=== PATIENT | female | born 1995 | race Caucasian/White ===

== ENCOUNTER 2018-03-08 16:51 | Outpatient (CLI) | payer OTHER ==
[2018-03-08] MEDS: TERBUTALINE 1 MG/ML INJ SC (18:57)
[2018-03-08] MEDS: LACTATED RINGER'S 1,000 ML IV (19:18)
[2018-03-08 19:45] LABS: ADD UMIC NO; UR ASCORBIC ACID NEGATIVE (NEGATIVE); UR BILIRUBIN (Dip) NEGATIVE (NEGATIVE); UR BLOOD (Dip) NEGATIVE (NEGATIVE); UR CLARITY CLEAR (CLEAR); UR COLOR YELLOW (YELLOW); UR GLUCOSE (Dip) NEGATIVE (NEGATIVE); UR KETONES (Dip) NEGATIVE (NEGATIVE); UR LEUKOCYTE ESTERASE (Dip) NEGATIVE Leu/ul (NEGATIVE); UR NITRITE (Dip) NEGATIVE (NEGATIVE); UR SPECIFIC GRAVITY (Dip) 1.011 (1.003-1.030); UR TOTAL PROTEIN (Dip) NEGATIVE (NEGATIVE); UR UROBILINOGEN (Dip) NEGATIVE (NEGATIVE)
== END 2018-03-08 21:18 | disposition home or self-care (01) ==
LOC: OBT 16:51 → L-D 16:52 → OBT 21:18
DX: O62.9 Abnormality of forces of labor, unspecified (principal); Z3A.36 36 weeks gestation of pregnancy
CPT/HCPCS: 36415; 76817; 76818; 81003; 96360; 96361; 96372

== ENCOUNTER 2018-03-14 22:00 | Inpatient (IN) | payer OTHER ==
[2018-03-14 23:59] LABS: RUPTURE FETAL MEMBRANES POSITIVE (NEGATIVE)
[2018-03-15] MEDS ORDERED: LACTATED RINGER'S 1,000 ML IV (00:20)
[2018-03-15] MEDS ORDERED: BUTORPHANOL 2 MG INJ IV (00:30)
[2018-03-15] MEDS ORDERED: METHYLERGONOVINE 0.2 MG INJ IM (00:30)
[2018-03-15] MEDS ORDERED: CARBOPROST 250 MCG INJ IM (00:30)
[2018-03-15] MEDS ORDERED: MISOPROSTOL 200 MCG TAB PR (00:30)
[2018-03-15] MEDS ORDERED: IBUPROFEN 600 MG TAB PO (00:30)
[2018-03-15] MEDS ORDERED: OXYTOCIN 30 UNITS/LR 500 ML IV ×3 (00:30)
[2018-03-15] MEDS ORDERED: LIDOCAINE 1% (MPF) 30 ML INJ INJ (00:30)
[2018-03-15] MEDS: LACTATED RINGER'S 1,000 ML IV ×3 (01:59→15:47)
[2018-03-15 02:26] LABS: ADD MAN DIFF? NO
[2018-03-15 02:29] LABS: WHITE BLOOD COUNT 11.2 10^3/ul (4.8-10.8)
[2018-03-15 02:29] LABS: BASOPHIL # 0.1 10^3/ul (0.0-0.1); BASOPHILS % 0.6 % (0.0-2.0); EOSINOPHILS # 0.1 10^3/ul (0.0-0.5); EOSINOPHILS % 0.9 % (0.0-7.0); HEMATOCRIT 34.5 % (37.0-47.0); HEMOGLOBIN 11.1 g/dl (12.0-16.0); LYMPHOCYTES # 3.3 10^3/ul (0.8-2.9); LYMPHOCYTES % 29.5 % (18.0-55.0); MEAN CORPUSCULAR HEMOGLOBIN 27.8 pg (29.0-33.0); MEAN CORPUSCULAR HGB CONC 32.2 g/dl (32.0-37.0); MEAN CORPUSCULAR VOLUME 86.5 fl (72.0-104.0); MEAN PLATELET VOLUME 10.9 fl (7.4-10.4); MONOCYTE # 0.9 10^3/ul (0.3-0.9); MONOCYTES % 8.3 % (0.0-13.0); NEUTROPHIL # 6.6 10^3/ul (1.6-7.5); NEUTROPHILS % 59.4 % (30.0-74.0); PLATELET COUNT 266 10^3/UL (140-415); RED BLOOD COUNT 3.99 10^6/ul (4.20-5.40); RED CELL DISTRIBUTION WIDTH 16.5 % (11.5-14.5)
[2018-03-15 02:53] LABS: INR 1.04; PROTIME 13.7 Sec (11.9-14.9); PT RATIO 1.1
[2018-03-15 02:54] LABS: PARTIAL THROMBOPLASTIN TIME 29.2 Sec (25.0-35.0)
[2018-03-15 04:30] LABS: HEPATITIS B SURFACE ANTIGEN NEGATIVE (NEGATIVE)
[2018-03-15 18:52] LABS: RAPID PLASMA REAGIN NONREACTIVE (NR)
[2018-03-16] MEDS: LACTATED RINGER'S 1,000 ML IV (05:38)
== END 2018-03-16 10:30 | disposition home or self-care (01) | DRG 782 ==
LOC: OBT 22:00 → L-D 22:00
PROVIDERS: Obstetrics & Gynecology
PROC: 4A1HXCZ Monitoring of Products of Conception, Cardiac Rate, External Approach (ICD-10-PCS; principal; 2018-03-15)
DX: O42.92 Full-term premature rupture of membranes, unspecified as to length of time between rupture and onset of labor (principal); Z3A.37 37 weeks gestation of pregnancy
CPT/HCPCS: 76815; 76816; 76818; 84112; 85025; 85610; 85730; 86592; 86850; 86900; 86901; 87340

== ENCOUNTER 2018-03-19 08:47 | Outpatient (CLI) | payer OTHER | END 2018-03-19 09:40 | disposition home or self-care (01) | LOC: OBT 08:47 → L-D 08:48 → OBT 09:40 | DX: O41.03X0 Oligohydramnios, third trimester, not applicable or unspecified (principal); Z3A.38 38 weeks gestation of pregnancy | CPT/HCPCS: 76818 ==

== ENCOUNTER 2018-03-24 15:48 | Outpatient (CLI) | payer OTHER | END 2018-03-24 18:05 | disposition home or self-care (01) | LOC: OBT 15:48 → L-D 15:50 → OBT 18:05 | DX: O62.9 Abnormality of forces of labor, unspecified (principal); Z3A.38 38 weeks gestation of pregnancy | CPT/HCPCS: 76818 ==

== ENCOUNTER 2018-04-03 13:01 | Outpatient (CLI) | payer OTHER | END 2018-04-03 15:00 | disposition home or self-care (01) | LOC: OBT 13:01 → L-D 13:01 → OBT 15:00 | DX: O48.0 Post-term pregnancy (principal); Z3A.40 40 weeks gestation of pregnancy | CPT/HCPCS: 76815; 76818 ==

== ENCOUNTER 2018-04-04 17:10 | Inpatient (IN) | payer OTHER ==
[2018-04-04] MEDS ORDERED: MISOPROSTOL 200 MCG TAB PR (18:00)
[2018-04-04] MEDS ORDERED: METHYLERGONOVINE 0.2 MG INJ IM (18:00)
[2018-04-04] MEDS ORDERED: HYDROCODONE/APAP (5/325) TAB PO (18:00)
[2018-04-04] MEDS ORDERED: IBUPROFEN 600 MG TAB PO (18:00)
[2018-04-04] MEDS ORDERED: CARBOPROST 250 MCG INJ IM (18:00)
[2018-04-04] MEDS ORDERED: OXYTOCIN 30 UNITS/LR 500 ML IV (18:00)
[2018-04-04] MEDS ORDERED: BUTORPHANOL 2 MG INJ IV (18:00)
[2018-04-04] MEDS ORDERED: LIDOCAINE 1% (MPF) 30 ML INJ INJ (18:00)
[2018-04-04] MEDS: LACTATED RINGER'S 1,000 ML IV (18:15)
[2018-04-04 18:29] LABS: ADD MAN DIFF? NO
[2018-04-04 18:37] LABS: BASOPHIL # 0.1 10^3/ul (0.0-0.1); BASOPHILS % 0.5 % (0.0-2.0); EOSINOPHILS # 0.1 10^3/ul (0.0-0.5); EOSINOPHILS % 0.8 % (0.0-7.0); HEMATOCRIT 35.3 % (37.0-47.0); HEMOGLOBIN 11.1 g/dl (12.0-16.0); LYMPHOCYTES # 2.9 10^3/ul (0.8-2.9); LYMPHOCYTES % 28.9 % (18.0-55.0); MEAN CORPUSCULAR HEMOGLOBIN 26.8 pg (29.0-33.0); MEAN CORPUSCULAR HGB CONC 31.4 g/dl (32.0-37.0); MEAN CORPUSCULAR VOLUME 85.3 fl (72.0-104.0); MEAN PLATELET VOLUME 10.6 fl (7.4-10.4); MONOCYTE # 0.9 10^3/ul (0.3-0.9); MONOCYTES % 8.6 % (0.0-13.0); NEUTROPHIL # 5.9 10^3/ul (1.6-7.5); NEUTROPHILS % 59.9 % (30.0-74.0); PLATELET COUNT 273 10^3/UL (140-415); RED BLOOD COUNT 4.14 10^6/ul (4.20-5.40); RED CELL DISTRIBUTION WIDTH 17.1 % (11.5-14.5)
[2018-04-04 18:37] LABS: WHITE BLOOD COUNT 9.9 10^3/ul (4.8-10.8)
[2018-04-04 18:54] LABS: INR 1.04; PROTIME 13.7 Sec (11.9-14.9); PT RATIO 1.1
[2018-04-04 18:55] LABS: PARTIAL THROMBOPLASTIN TIME 28.3 Sec (25.0-35.0)
[2018-04-04 19:23] LABS: HEPATITIS B SURFACE ANTIGEN NEGATIVE (NEGATIVE)
[2018-04-04] MEDS: OXYTOCIN 30 UNITS/LR 500 ML IV (23:05)
[2018-04-05] MEDS: LACTATED RINGER'S 1,000 ML IV ×5 (00:46→18:37)
[2018-04-05 15:29] LABS: RAPID PLASMA REAGIN NONREACTIVE (NR)
[2018-04-05] MEDS ORDERED: FENTAnyl 2MCG/ML-ROPIV 0.2% 100 ML (16:18)
[2018-04-05] MEDS ORDERED: NALOXONE (0.4 MG/ML) INJ IV (17:00)
[2018-04-05] MEDS ORDERED: ACETAMINOPHEN 325 MG TAB PO (17:30)
[2018-04-05] MEDS ORDERED: EPHEDrine SULFATE 50 MG/5 ML SYG IV (18:30)
[2018-04-06] MEDS: FENTAnyl 2MCG/ML-ROPIV 0.2% 100 ML BAG EPI ×2 (01:06→08:43)
[2018-04-06] MEDS: LACTATED RINGER'S 1,000 ML IV ×2 (03:04→10:46)
[2018-04-06] MEDS ORDERED: PHENYLephrine (100 MCG/ML) 5ML SYG (07:00)
[2018-04-06] MEDS ORDERED: CARBOPROST 250 MCG INJ IM (15:00)
[2018-04-06] MEDS ORDERED: OXYTOCIN 30 UNITS/LR 500 ML IV (15:00)
[2018-04-06] MEDS ORDERED: MISOPROSTOL 200 MCG TAB PR (15:00)
[2018-04-06] MEDS ORDERED: METHYLERGONOVINE 0.2 MG INJ IM (15:00)
[2018-04-06] MEDS: CITRIC ACID/SODIUM CITRATE 15 ML CUP PO (15:28)
[2018-04-06] MEDS: FAMOTIDINE 20 MG INJ IV (15:28)
[2018-04-06] MEDS: METOCLOPRAMIDE 10 MG INJ IV (15:29)
[2018-04-06] MEDS ORDERED: LIDOCAINE 1.5%/EPI MPF (SDV) 30 ML VIAL (15:52)
[2018-04-06] MEDS ORDERED: morphine SULFATE/PF (10 MG/10 ML) INJ (15:52)
[2018-04-06] MEDS ORDERED: FENTAnyl 50 MCG/ML VIAL (15:53)
[2018-04-06] MEDS ORDERED: PHENYLephrine (100 MCG/ML) 10ML SYG ×2 (16:00→16:33)
[2018-04-06] MEDS ORDERED: ONDANSETRON 4 MG INJ (16:22)
[2018-04-06] MEDS ORDERED: PROCHLORPERAZINE 10 MG INJ IV (16:30)
[2018-04-06] MEDS ORDERED: KETOROLAC 30 MG INJ IV (16:30)
[2018-04-06] MEDS ORDERED: DIPHENHYDRAMINE 50 MG INJ IV ×2 (16:30→18:30)
[2018-04-06] MEDS ORDERED: ONDANSETRON 4 MG INJ IV ×2 (16:30→18:30)
[2018-04-06] MEDS ORDERED: HYDROmorphONE 1 MG/5 ML IV SYRINGE IV ×3 (16:30)
[2018-04-06] MEDS ORDERED: MEPERIDINE 25 MG INJ IV (16:30)
[2018-04-06] MEDS ORDERED: FENTAnyl 50 MCG/ML VIAL IV ×3 (16:30)
[2018-04-06] MEDS: OXYTOCIN 30 UNITS/LR 500 ML IV ×3 (17:26→21:31)
[2018-04-06] MEDS ORDERED: NALOXONE (0.4 MG/ML) INJ IV (18:30)
[2018-04-06] MEDS ORDERED: ZOLPIDEM 5 MG TAB PO (18:30)
[2018-04-06] MEDS ORDERED: HYDROmorphONE 0.5 MG/0.5 ML SYG IV ×2 (18:30)
[2018-04-06] MEDS ORDERED: NALBUPHINE HCL (10 MG/1 ML) INJ IV (18:30)
[2018-04-06] MEDS: CEFAZOLIN 2 GM/50 ML (PMX) 50 ML IV (20:15)
[2018-04-06] MEDS ORDERED: ACETAMINOPHEN 325 MG TAB PO (21:30)
[2018-04-06] MEDS ORDERED: WITCH HAZEL/GLYCERIN PAD PR (21:30)
[2018-04-06] MEDS ORDERED: DIBUCAINE 1% 30 GM OINT PR (21:30)
[2018-04-06] MEDS ORDERED: BENZOCAINE 20% 56 ML SPRAY TOP (21:30)
[2018-04-07] MEDS: LANOLIN 7 GM TUBE TOP (01:21)
[2018-04-07] MEDS: KETOROLAC 30 MG INJ IV ×2 (01:21→10:45)
[2018-04-07] MEDS: LACTATED RINGER'S 1,000 ML IV ×2 (05:11→13:30)
[2018-04-07 09:01] LABS: ADD MAN DIFF? NO
[2018-04-07 09:05] LABS: WHITE BLOOD COUNT 14.4 10^3/ul (4.8-10.8)
[2018-04-07 09:05] LABS: ABNORMAL IP MESSAGE 1; BASOPHILS % 0.3 % (0.0-2.0); EOSINOPHILS % 0.1 % (0.0-7.0); HEMATOCRIT 30.2 % (37.0-47.0); HEMOGLOBIN 9.8 g/dl (12.0-16.0); LYMPHOCYTES # 1.8 10^3/ul (0.8-2.9); LYMPHOCYTES % 12.4 % (18.0-55.0); MEAN CORPUSCULAR HEMOGLOBIN 26.9 pg (29.0-33.0); MEAN CORPUSCULAR HGB CONC 32.5 g/dl (32.0-37.0); MEAN PLATELET VOLUME 10.4 fl (7.4-10.4); MONOCYTE # 1.6 10^3/ul (0.3-0.9); NEUTROPHIL # 10.9 10^3/ul (1.6-7.5); NEUTROPHILS % 75.6 % (30.0-74.0); PLATELET COUNT 215 10^3/UL (140-415); RED BLOOD COUNT 3.64 10^6/ul (4.20-5.40); RED CELL DISTRIBUTION WIDTH 16.9 % (11.5-14.5)
[2018-04-07] MEDS: SENNA/DOCUSATE NA (8.6MG/50MG) TAB PO ×2 (10:45→21:32)
[2018-04-07] MEDS ORDERED: ONDANSETRON 4 MG INJ IV (16:41)
[2018-04-07] MEDS ORDERED: HYDROCODONE/APAP (5/325) TAB PO ×2 (16:41)
[2018-04-07] MEDS ORDERED: OXYCODONE/ASPIRIN (4.88/325) TAB PO (16:41)
[2018-04-07] MEDS: OXYCODONE/ASPIRIN (4.88/325) TAB PO (16:47)
[2018-04-07] MEDS: IBUPROFEN 600 MG TAB PO (18:59)
[2018-04-08] MEDS: IBUPROFEN 600 MG TAB PO ×4 (00:07→17:26)
[2018-04-08] MEDS: MEASLES,MUMPS,RUBELLA VACCINE INJ SC* (09:00)
[2018-04-08] MEDS: SENNA/DOCUSATE NA (8.6MG/50MG) TAB PO ×2 (09:16→21:14)
[2018-04-09] MEDS: IBUPROFEN 600 MG TAB PO ×3 (00:41→11:54)
[2018-04-09] MEDS: SENNA/DOCUSATE NA (8.6MG/50MG) TAB PO (09:14)
[2018-04-09] MEDS: NA PHOSPHATE/BIPHOS 133 ML ENEMA PR (10:46)
== END 2018-04-09 17:50 | disposition home or self-care (01) | DRG 766 ==
LOC: L-D 04-06 15:39 → PP1 04-06 20:29
PROVIDERS: Obstetrics & Gynecology
PROC: 10D00Z1 Extraction of Products of Conception, Low, Open Approach (ICD-10-PCS; principal; 2018-04-06 16:00)
DX: O48.0 Post-term pregnancy (principal); Z3A.40 40 weeks gestation of pregnancy; O61.0 Failed medical induction of labor; O62.0 Primary inadequate contractions; Z37.0 Single live birth
CPT/HCPCS: 62319; 85025; 85610; 85730; 86592; 86850; 86900; 86901; 87340; 99464